=== PATIENT | male | born 1990 | race Caucasian/White ===

== ENCOUNTER 2017-08-15 10:55 | Emergency (ER) | payer OTHER ==
[2017-08-15 12:00] VITALS: BP 114/78
== END 2017-08-15 12:49 | disposition home or self-care (01) ==
LOC: ED 10:55
DX: S46.912A Strain of unspecified muscle, fascia and tendon at shoulder and upper arm level, left arm, initial encounter (principal); M54.2 Cervicalgia; M54.6 Pain in thoracic spine; V49.29XA Unspecified car occupant injured in collision with other motor vehicles in nontraffic accident, initial encounter; Y93.89 Activity, other specified; Y99.8 Other external cause status; Y92.89 Other specified places as the place of occurrence of the external cause
CPT/HCPCS: Q0092